=== PATIENT | male | born 1995 | race Caucasian/White ===

== ENCOUNTER 2021-10-20 21:58 | Emergency (ER) | payer OTHER ==
[~2021-10-20] VITALS: Ht 180.3 cm; Wt 113.4 kg
[2021-10-20 22:05] VITALS: BP 159/68
[2021-10-20] MEDS ORDERED: POLYMYXIN B/TMP10 ML OPHTHALMIC (22:43)
== END 2021-10-20 23:11 | disposition home or self-care (01) ==
LOC: ER 21:58
DX: H16.8 Other keratitis (principal)